=== PATIENT | born 1995 | race Caucasian/White ===

== ENCOUNTER → 2018-04-30 10:52 | Outpatient (CLI) | payer OTHER, SELFPAY ==
--- NOTE | 2018-04-30 | DI.RAD.S_ITS ---
PROCEDURE: XR SHOULDER RT MIN 2V INDICATIONS: RIGHT SHOULDER PAIN TECHNIQUE: 4 views of the shoulder were acquired. COMPARISON: None. FINDINGS: Bones: No fractures or dislocations. No suspicious bony lesions. Visualized ribs appear intact. Soft tissues: No suspicious soft tissue calcifications. IMPRESSION: No acute osseous abnormality of the right shoulder is evident. Dictated by: Jaime Gibbons M.D. on 04/30/2018 at 10:48 Approved by: Jaime Gibbons M.D. on 04/30/2018 at 10:53
== END ==
PROVIDERS: PCP Family Medicine; Visit Provider Family Medicine
DX: M25.511 Pain in right shoulder (principal)
CPT/HCPCS: 73030